=== PATIENT | male | born 1935 | race Caucasian/White ===

== ENCOUNTER 2017-08-21 22:01 | Emergency (ER) | payer OTHER ==
[~2017-08-21] VITALS: Ht 165.1 cm; Wt 65.8 kg
[2017-08-21] MEDS ORDERED: methylPREDNISolone SOD SUCC 125 MG/2 ML VL IV ONE (22:15)
[2017-08-21] MEDS ORDERED: FUROSEMIDE 20 MG/2 ML VIAL IV ONE (22:15)
[2017-08-21 22:22] LABS: Allen Test Modified; Base Excess 4.9 mmol/L (-2.0-2.0); Blood 02Sat 95.1 % (96-100); Blood COHb 0.2 % (0.5-1.5); Blood MetHb 0.3 % (0.0-1.5); HCO3 28.4 mmol/L (22-26.0); HHb 4.9 % (0.0-5.0); MODE MASK - BIPAP; O2Hb 94.6 % (94.0-97.0); PCO2 38.1 mmHg (35.0-45.0); PCO2(T) 38.1 mmHg (35.0-45.0); PIP 12; PO2 75.3 mmHg (80.0-100.0); PO2(T) 75.3 mmHg (80.0-100.0); Sample Type Arterial; pH 7.491 (7.350-7.450)
[2017-08-21 22:39] LABS: Basophils # (auto) 0 uL; Basophils % (auto) 0.3 % (0.0-2.0); Eosinophils # (auto) 0 uL; Eosinophils % (auto) 0.4 % (0.0-7.0); Hematocrit 34.8 % (41.0-53.0); Hemoglobin 11.9 g/dL (13.5-17.5); Lymphocytes # (auto) 0.6 uL; Lymphocytes % (auto) 5.1 % (10.0-50.0); Mean Corpuscular Hemoglobin 33.5 pg (28.0-32.0); Mean Corpuscular Hgb Conc. 34.2 g/dL (32.0-36.0); Mean Platelet Volume 7.5 fL (6.9-10.8); Monocytes # (auto) 0.6 uL; Monocytes % (auto) 4.9 % (0.0-12.0); Neutrophils # (auto) 10.4 uL; Neutrophils % (auto) 89.3 % (37.0-80.0); Nucleated Red Blood Cells % 0.1 %; Platelet Count (auto) 176 10^3/uL (140-450); Red Cell Distribution Width 14.4 % (11.8-14.3); White Blood Cell 11.7 10^3/uL (4.4-10.8)
[2017-08-21 23:01] LABS: Albumin 2.3 g/dL (3.4-5.0); BUN/Creatinine Ratio 13.4; Bilirubin, Total 0.6 mg/dL (0.2-1.0); INR 0.95 (0.9-1.15); Magnesium 3.2 mg/dL (1.6-2.6); Partial Thromboplastin Time 29.2 sec (22.64-33.71); Potassium 3.3 mmol/L (3.5-5.1); Prothrombin Time 10.4 sec (9.37-12.3); Total Protein 5.7 g/dL (6.4-8.2)
[2017-08-21 23:24] LABS: Temperature: 20.9 C (20.0-25.0)
[2017-08-21 23:25] LABS: Urine Bilirubin Negative (Negative); Urine Blood Negative /uL (Negative); Urine Color Yellow (Yellow); Urine Glucose Normal (Normal); Urine Ketone Negative (Negative); Urine Nitrite Negative (Negative); Urine RBC 2 /hpf (0 - 3); Urine Urobilinogen Normal (Negative); Urine pH 6.5 (5.0-8.0)
[2017-08-22 08:24] VITALS: BP 120/72
== END 2017-08-22 08:43 | disposition home or self-care (01) ==
LOC: EDBD 22:01 → ER 22:04
DX: J44.1 Chronic obstructive pulmonary disease with (acute) exacerbation (principal); I11.0 Hypertensive heart disease with heart failure; I50.9 Heart failure, unspecified; J44.9 Chronic obstructive pulmonary disease, unspecified; F17.210 Nicotine dependence, cigarettes, uncomplicated; N40.0 Benign prostatic hyperplasia without lower urinary tract symptoms
CPT/HCPCS: 36415; 36600; 71010; 80053; 81001; 82805; 83605; 83735; 83880; 84484; 85025; 85379; 85610; 85730; 87040; 93005; 94660; 96374; 96375; 99285; J1940; J2930